=== PATIENT | female | born 1975 | race African-American/Black ===

== ENCOUNTER 2022-03-28 18:04 | Inpatient (IN) ==
[2022-03-28] MEDS: ZOFRAN INJ 4 MG VIAL IVP PRN (20:50)
[2022-03-28] MEDS ORDERED: ZOFRAN INJ 4 MG VIAL ONE (20:55)
[2022-03-28] MEDS ORDERED: TOPROL XL PO ONE ×2 (20:56→23:09)
[2022-03-28] MEDS ORDERED: DILAUDID INJ ONE (20:56)
[2022-03-28] MEDS ORDERED: D5 1/2 NS 1,000 ML 1,000 ML IV ONE (20:59)
[2022-03-28] MEDS: TOPROL XL PO SCH (21:10)
[2022-03-28] MEDS: DILAUDID INJ IVP PRN (21:10)
[2022-03-28] MEDS: CATAPRES TAB 0.1 MG PO PRN (21:25)
[2022-03-28 21:38] VITALS: BMI 42.6
[2022-03-28] MEDS: D5 1/2 NS 1,000 ML 1,000 ML IV SCH (21:48)
[2022-03-28] MEDS: NovoLIN R (or HumuLIN R) SUBCUT PRN (21:56)
[2022-03-28] MEDS ORDERED: APRESOLINE INJ 20 MG VIAL IVP ONE (21:59)
[2022-03-28] MEDS ORDERED: LEVAQUIN PREMIX IV 500 MG 500 MG/100 ML BAG IV ONE (23:00)
[2022-03-29] MEDS: DILAUDID INJ IVP PRN ×6 (00:27→17:14)
[2022-03-29] MEDS: ZOFRAN INJ 4 MG VIAL IVP PRN (03:29)
[2022-03-29] MEDS: CARDENE IV PREMIX* 40 MG/200 ML 40 MG/200 ML PIGGYBACK IV PRN ×3 (04:22→10:23)
--- NOTE | 2022-03-29 06:06 | RAD ---
HISTORYPRE-OP Relevant Clinical InformationSTUDYCHEST, 1 VIEWCOMPARISONNoneFINDINGSThe trachea is midline. The cardiac silhouette is enlarged.. The lungs are clear without focal infiltrate or effusion. The bony thorax is unremarkable.IMPRESSIONMild cardiomegaly.No active cardiopulmonary disease.Electronically signed by: Alexi Valdez (Mar 29, 2022 06:03:46)
[2022-03-29] MEDS: D5 1/2 NS 1,000 ML 1,000 ML IV SCH ×3 (06:54→21:30)
[2022-03-29 07:07] LABS: BASOPHILS # (AUTO) 0.1 X10^3/uL (0.0-0.1); BASOPHILS % (AUTO) 0.4 % (0.2-1.0); HEMATOCRIT 32.5 % (36.0-47.0); HEMOGLOBIN 10.9 g/dL (12.0-16.0); LYMPHOCYTES % (AUTO) 6.1 % (21.0-51.0); MEAN CORPUSCULAR HEMOGLOBIN 28.8 pg (27.0-34.0); MEAN CORPUSCULAR HGB CONC 33.4 g/dL (33.0-35.0); MEAN CORPUSCULAR VOLUME 86.1 fL (80.0-100.0); MEAN PLATELET VOLUME 8.4 fL (7.4-11.0); MONOCYTES % (AUTO) 5.9 % (0.0-13.0); NEUTROPHILS # (AUTO) 14.3 x10^3/uL (2.2-4.8); NEUTROPHILS % (AUTO) 87.6 % (42.0-75.0); RED BLOOD COUNT 3.77 X10^6/uL (3.5-5.4); RED CELL DISTRIBUTION WIDTH 14.6 % (11.6-16.5); WHITE BLOOD COUNT 16.3 X10^3/uL (3.6-10.0)
[2022-03-29 07:22] LABS: ALBUMIN 2.6 g/dL (3.4-5.0); CALCIUM 8.2 mg/dL (8.5-10.1); CARBON DIOXIDE 27.5 mmol/L (21-32); COR CA(FOR HYPOALB) 9.3 mg/dL (8.5-10.1); CREATININE 1.35 mg/dL (0.55-1.02); TOTAL PROTEIN 8.8 g/dL (6.4-8.2)
[2022-03-29] MEDS ORDERED: KLOR-CON PO PRN (07:38)
[2022-03-29] MEDS ORDERED: K-DUR TAB 20 MEQ PO PRN (07:38)
[2022-03-29] MEDS ORDERED: K-RIDER 10 MEQ/NS 100 ML 10 MEQ/100 ML BAG IV PRN (07:38)
[2022-03-29] MEDS ORDERED: POTASSIUM CHL 60 MEQ/NS 0.45% 500 ML IV PRN (07:38)
[2022-03-29] MEDS ORDERED: POTASSIUM CHL 40 MEQ/NS 0.45% 500 ML IV PRN (07:38)
[2022-03-29] MEDS ORDERED: MICRO K EXTEN CAP 10 MEQ PO PRN (07:38)
[2022-03-29] MEDS ORDERED: POTASSIUM CHLORIDE LIQ 20 MEQ UDC PO PRN (07:38)
[2022-03-29] MEDS: TOPROL XL PO SCH (08:24)
[2022-03-29] MEDS: LEVAQUIN PREMIX IV 500 MG 500 MG/100 ML BAG IV SCH (08:24)
[2022-03-29] MEDS: MAGNESIUM SULFATE 1 GRAM/100 mL PREMIX 1 G/100 ML BAG IV PRN ×5 (08:35→12:19)
[2022-03-29] MEDS ORDERED: NS IRRIGATION* 500 ML IR ONE (08:39)
[2022-03-29] MEDS ORDERED: STERILE WATER IRRIGATION IR ONE (08:39)
[2022-03-29] MEDS: PROTONIX INJ 40 MG VIAL IVP SCH (10:22)
[2022-03-29] MEDS ORDERED: ANCEF VIAL 1 GRAM ONE (13:24)
[2022-03-29] MEDS ORDERED: NS 100 ML IV 100 ML ONE (13:24)
[2022-03-29] MEDS ORDERED: NS 1,000 ML IV 1,000 ML ONE ×2 (13:24→14:01)
[2022-03-29] MEDS ORDERED: QUELICIN (OR ANECTINE) ONE (13:29)
[2022-03-29] MEDS ORDERED: VERSED ONE (13:29)
[2022-03-29] MEDS ORDERED: ZEMURON 100 MG VIAL ONE (13:29)
[2022-03-29] MEDS ORDERED: FENTANYL VIAL INJ 250 mcg ONE (13:29)
[2022-03-29] MEDS ORDERED: XYLOCAINE 2 % (PLAIN) ONE (13:30)
[2022-03-29] MEDS ORDERED: BRIDION ONE (13:30)
[2022-03-29] MEDS ORDERED: DIPRIVAN VIAL 20 ML ONE (13:30)
[2022-03-29] MEDS ORDERED: BARHEMSYS INJ IVP PRN (13:56)
[2022-03-29] MEDS ORDERED: REGLAN INJ 10 MG VIAL IVP PRN (13:56)
[2022-03-29] MEDS ORDERED: BENADRYL INJ 50 MG VIAL IVP PRN (13:56)
[2022-03-29] MEDS ORDERED: PHENERGAN INJ 25 MG IM PRN (13:56)
[2022-03-29] MEDS ORDERED: ZOFRAN INJ 4 MG VIAL IVP PRN (13:56)
[2022-03-29] MEDS ORDERED: BACTROBAN TOPICAL OINT ONE (14:02)
[2022-03-29] MEDS ORDERED: SUPRANE ONE (15:30)
[2022-03-29] MEDS ORDERED: DILAUDID INJ ONE (16:52)
--- NOTE | 2022-03-29 18:13 | DR.CONSULT ---
CONSULT Consultation for Day of: Date: 03/29/22 Chief Complaint Chief Complaint: Abdominal pain Nausea, vomiting Allergies Allergies Allergy/AdvReac Type Severity Reaction Status Date / Time lisinopril Allergy Verified 03/28/22 21:00 History of Present Illness History of Present Illness: Pt is a 47 year old female past medical history of hypertension, hyperlipidemia, Diabetes mellitus, presenting as transfer for surgical consultation due to recurrent cholecystitis secondary to large gallstones. Medicine consulted for chronic disease management. Pt reports symp toms of RUQ pain, nausea, and vomiting, acutely worsened last night. CTAP revealed that patient had large gallstones. She states symptoms has been intermittent for the past few months until last night. Labs/imaging: Wbc 16.3, Hgb 10.9, Plt 256, Na 137, K 3.6, Creatinine 1.35, Glucose 213, AST 19, ALT 20, ALKP 106, Lipase 44, Amylase 51, CXR no acute cardiopulmonary disease. Pt was placed NPO awaiting surgery evaluation. Overnight she did develop hypertensive urgency, it is unclear whether she had taken her home oral anti-hypertensive medications. She was placed on a cardene gtt that achieved blood pressure regulation after other IV medications were unsuccessful. Will keep patient NPO, continue IVF hydration. Will continue to monitor patient and follow up surgical evaluation and management. Restart home medications when no longer requiring NPO. Follow up labs in the morning. Past Surgical History Surgical History: Family History Family Medical History: Diabetes Mellitus, Coronary Artery Disease and Hypertension Social History Does patient currently use any type of tobacco product: No Have you used tobacco products in the last 12 months: No Type of Tobacco Use: None Does any household member use tobacco: No Alcohol Use: Occasionally Drug Use: Marijuana Medications Home Medications: lisinopril Allergy (Verified 03/28/22 21:00) CONTINUE taking the following medications aspirin 81 mg chewable tablet (Aspirin Childrens) 81 mg PO QDAY 03/28/22 [History] benzonatate 100 mg capsule 200 mg PO BID-TID PRN 03/28/22 [History] buspirone 10 mg tablet 10 mg PO BID 03/28/22 [History] cetirizine 10 mg tablet 10 mg PO QDAY 03/28/22 [History] citalopram 40 mg tablet 40 mg PO QDAY 03/28/22 [History] clonidine HCl 0.1 mg tablet 0.1 mg PO BID 03/28/22 [History] diclofenac sodium 75 mg tablet,delayed release 75 mg PO BID 03/28/22 [History] gabapentin 400 mg capsule 800 mg PO BID 03/28/22 [History] metformin 500 mg tablet 500 mg PO BID 03/28/22 [History] metoprolol succinate 25 mg tablet,extended release 24 hr 25 mg PO DAILY 03/28/22 [History] pantoprazole 40 mg tablet,delayed release 40 mg PO QDAY 03/28/22 [History] potassium chloride 20 mEq tablet,extended release(part/cryst) 20 meq PO QDAY 03/28/22 [History] triamcinolone acetonide 0.5 % topical ointment 1 applic topical QDAY 03/28/22 [History] triamterene 37.5 mg-hydrochlorothiazide 25 mg capsule 1 cap PO QDAY 03/28/22 [History] Review of Systems Constitutional: No Symptoms Reported Eyes: No Symptoms Reported ENT: No Symptoms Reported Respiratory: No Symptoms Reported Cardiovascular: No Symptoms Reported Gastrointestinal: Nausea, Vomiting and Abdominal Pain Genitourinary: No Symptoms Reported Musculoskeletal: No Symptoms Reported Skin: No Symptoms Reported Neurological: No Symptoms Reported Physical Exam Vital Signs: Temperature 98.2 F Pulse Rate [Left Brachial] 72 Pulse Rate 64 Respiratory Rate 20 Blood Pressure [Right Arm] 243/108 Blood Pressure [Left Arm] 238/112 Blood Pressure 164/79 O2 Sat by Pulse Oximetry 95 Oriented: Normal Eyes: Normal Ear: Normal Nose: Normal Throat: Normal Respiratory: Clear Throughout Cardiovascular: Normal : Normal Auscultation: Bowel Sounds: Normal Palpation: Normal Tenderness: RUQ and Moderate Skin: Normal Musculoskeletal: Normal Psychiatric: Normal Mood Description: Calm Plan (1) Acute calculous cholecystitis: Status: Acute Narrative Support Text: Surgery primary (2) Hypertensive urgency: Status: Acute Narrative Support Text: continue cardene gtt restart home medications
[2022-03-29] MEDS: SNACK - Diabetic Appropriate PO SCH (21:00)
[2022-03-30] MEDS: DILAUDID INJ IVP PRN ×2 (02:30)
[2022-03-30] MEDS: D5 1/2 NS 1,000 ML 1,000 ML IV SCH ×4 (05:33→21:13)
[2022-03-30] MEDS: LEVAQUIN PREMIX IV 500 MG 500 MG/100 ML BAG IV SCH (08:56)
[2022-03-30] MEDS: PROTONIX INJ 40 MG VIAL IVP SCH (08:56)
[2022-03-30] MEDS: TOPROL XL PO SCH (08:57)
[2022-03-30] MEDS ORDERED: ZOFRAN TAB 4 MG PO ONE (12:37)
[2022-03-30] MEDS: NORCO 5/325 MG TAB PO PRN ×2 (12:50→17:30)
[2022-03-30] MEDS: NovoLIN R (or HumuLIN R) SUBCUT PRN ×2 (13:05→17:35)
[2022-03-30] MEDS ORDERED: VALIUM INJ ONE (13:40)
[2022-03-30] MEDS ORDERED: VALIUM INJ IM ONE (14:03)
[2022-03-30] MEDS: CATAPRES TAB 0.1 MG PO PRN (16:01)
[2022-03-30] MEDS: NORMODYNE INJ 20 MG VIAL IV PRN ×2 (17:23→22:09)
[2022-03-30] MEDS ORDERED: DILAUDID INJ IM ONE (17:57)
[2022-03-30] MEDS ORDERED: PHENERGAN INJ 25 MG IM ONE (17:57)
[2022-03-30] MEDS ORDERED: CATAPRES TAB 0.2 MG PO ONE (19:11)
[2022-03-30] MEDS: SNACK - Diabetic Appropriate PO SCH (21:06)
[2022-03-30] MEDS ORDERED: TOPROL XL PO STA (23:15)
[2022-03-30] MEDS ORDERED: DIOVAN TAB 160 MG PO STA (23:15)
[2022-03-30] MEDS ORDERED: DIOVAN TAB 160 MG PO ONE (23:24)
[2022-03-30] MEDS ORDERED: TOPROL XL PO ONE (23:25)
[2022-03-31] MEDS: DILAUDID INJ IVP PRN
[2022-03-31] MEDS: D5 1/2 NS 1,000 ML 1,000 ML IV SCH ×2 (02:16→04:59)
[2022-03-31] MEDS: MAGNESIUM SULFATE 1 GRAM/100 mL PREMIX 1 G/100 ML BAG IV PRN ×2 (05:13→09:13)
[2022-03-31] MEDS: LEVAQUIN PREMIX IV 500 MG 500 MG/100 ML BAG IV SCH (09:12)
[2022-03-31] MEDS: PROTONIX INJ 40 MG VIAL IVP SCH (09:13)
[2022-03-31] MEDS: TOPROL XL PO SCH (09:14)
[2022-03-31 13:36] VITALS: BP 162/75
--- NOTE | 2022-04-01 16:08 | OR.IMMED ---
Immediate Post-Op Note - Immediate Post-Op Note Pre-Op Diagnosis: acute calculus cholecystitis . Post-Op Diagnosis: acute and chronic calculus cholecystitis . morbid obesity . fatty liver . Procedure: lap ana .. Surgeon/Technology Assistant: Ankit quezada Specimens Removed: GB with stones . Estimated Blood Loss: 10 to 15 cc Drains: NONE Complications: none Condition: Stable (on clear liquid . IV ABT .IVF ..)
== END 2022-03-31 14:30 | disposition home or self-care (01) | DRG 419 ==
LOC: MED/SURG → ICU 03-29 03:26
PROVIDERS: ADMIT Surgery; ATTEND Surgery
DX: I16.0 Hypertensive urgency; R11.2 Nausea with vomiting, unspecified; F41.8 Other specified anxiety disorders; E11.65 Type 2 diabetes mellitus with hyperglycemia; R10.84 Generalized abdominal pain; I25.10 Atherosclerotic heart disease of native coronary artery without angina pectoris; K80.12 Calculus of gallbladder with acute and chronic cholecystitis without obstruction; E66.01 Morbid (severe) obesity due to excess calories; K21.9 Gastro-esophageal reflux disease without esophagitis; K76.0 Fatty (change of) liver, not elsewhere classified; R53.1 Weakness; R42 Dizziness and giddiness